=== PATIENT | male | born 1940 | race Caucasian/White ===

== ENCOUNTER 2019-02-10 10:09 | Inpatient (IN) ==
[2019-02-10] MEDS ORDERED: NS 1,000 ML IV ONE (10:49)
[2019-02-10 11:19] LABS: BASO# 0.03 X1000 (0.0-0.2); BASO% 0.2 % (0.0-0.8); EOS# 0.07 X1000 (0.0-0.7); EOS% 0.5 % (0.0-10.0); HEMATOCRIT 39.4 % (42.0-52.0); HEMOGLOBIN 13.7 g/dL (14.0-18.0); IMM GRAN# 0.06 X1000 (0.0-0.04); IMM GRAN% 0.4 % (0.0-0.5); LYMPH# 1.02 X1000 (1.2-3.4); LYMPH% 7.3 % (20.5-51.1); MCH 32.2 PG (27-31); MCHC 34.8 g/dL (33-37); MCV 92.5 FL (81-99); MONO# 0.87 X1000 (0.11-0.59); MONO% 6.2 % (1.7-9.3); MPV 9.4 FL (7.4-10.4); NEUT# 11.94 X1000 (1.4-6.5); NEUT% 85.4 % (42.2-75.2); PLT 268 X1000 (130-400); RBC 4.26 XMIL (4.7-6.1); RDW 12.9 % (11.5-14.5); WBC 13.99 X1000 (4.8-10.8)
--- NOTE | 2019-02-10 11:19 | Diag Imaging Result Doc PS360 ---
CHEST-2 VIEWS - 02/10/2019 INDICATION: short of breath COMPARISON: 05/15/2018 FINDINGS: There is some ill-defined left upper lobe infiltrate. Heart size and pulmonary vascularity is normal. No pneumothorax or pleural effusion. IMPRESSION: Left upper lobe infiltrate compatible with pneumonia. Recommend treatment and a short-term follow-up chest x-ray in about one-2 weeks. Electronically signed by Guillaume Ward 02/10/2019 11:17 AM
[2019-02-10] MEDS ORDERED: ROCEPHIN 2 GM in NS 50 ML IV ONE (11:30)
[2019-02-10] MEDS ORDERED: ZITHROMAX 500 MG/NS 500 MG/250 ML IVPB IV ONE (11:30)
[2019-02-10 11:35] LABS: AGAP 16; ALBUMIN 3.2 g/dL (3.5-5.0); ALKALINE PHOSPHATASE 75 U/L (32-122); BUN 19 mg/dL (8-22); CALCIUM 8.6 mg/dL (8.8-10.2); CHLORIDE 95 mmol/L (98-107); COSMO 270; ESTIMATED GFR > 60; GLUCOSE 117 mg/dL (70-104); GOT 24 U/L (10-34); GPT 15 U/L (10-44); POTASSIUM 3.5 mmol/L (3.5-5.1); SODIUM 133 mmol/L (136-145); TCO2 22 mmol/L (25-35); TOTAL BILIRUBIN 0.34 mg/dL (0.20-1.00); TOTAL PROTEIN 6.5 g/dL (6.3-8.3)
[2019-02-10] MEDS ORDERED: TYLENOL PO PRN (14:53)
[2019-02-10] MEDS ORDERED: ZOFRAN IV PRN (14:53)
[2019-02-10] MEDS ORDERED: ROBITUSSIN-DM PO PRN (14:56)
--- NOTE | 2019-02-10 15:35 | HISTORY AND PHYSICAL ---
CHIEF COMPLAINT: Fever, dehydration. HISTORY OF PRESENT ILLNESS: This is a very pleasant 78-year-old gentleman with a history of hypertension who presents to the emergency room complaining of just feeling bad for 10 days. Stated that he has had no appetite, only taking in liquids during this 10 days. He states that for the last 7 weeks he has had intermittent body aches, fever, nausea, diarrhea, prompting his ER visit. He denied any chest pain, palpitations, any syncope, any black or bloody vomitus or stools. PAST MEDICAL HISTORY: Hypertension, gastroesophageal reflux disease, villous adenoma, status post colon resection. PAST SURGICAL HISTORY: Colon resection in 2016, appendectomy, cholecystectomy and routine colonoscopy. SOCIAL HISTORY: He smokes a pipe every day. He is . He lives with his . He denies alcohol or illicit drug use. ALLERGIES: No known drug allergies. HOME MEDICATIONS: A list will be obtained by the nursing staff and once verified will be reviewed and restarted as appropriate. REVIEW OF SYSTEMS: As discussed with patient with pertinent positives stated in the HPI. He denied any chest pain, palpitations, syncope, dizziness, productive cough, recent weight loss or weight gain, any constipation, any black or bloody vomitus or stools, any hematuria, dysuria, frequency, urgency. PHYSICAL EXAMINATION: GENERAL: This is a 78-year-old gentleman who is lying flat in the stretcher in the emergency room in no distress. VITAL SIGNS: Blood pressure is 158/90, with a heart rate of 80, respirations 18, temperature is 99.3 oral, with room air sats 96-98%. EYES: Pupils equal, round, react to light. EOMs are intact. Sclerae are anicteric. HEENT: Head is normocephalic, atraumatic. Mucous membranes are dry and sticky. NECK: Supple, with trachea midline. CARDIOVASCULAR: Regular rate and rhythm. S1 and S2 are appreciated. EXTREMITIES: He has no lower extremity edema. Calves are nontender to palpation bilaterally, with peripheral pulses palpable x 4 extremities. PULMONARY: Breath sounds with some rhonchi that do not completely clear to cough on the left. Chest rises and falls symmetrically with respiration. Chest wall is nontender to palpation. He has no increased work of breathing noted. GASTROINTESTINAL: Soft, nontender, nondistended, with bowel sounds in all 4 quadrants. GENITOURINARY: He has no CVA nor suprapubic tenderness. NEUROLOGIC: He is alert oriented x 3. SKIN: Warm and dry. LABS: WBC is 13.9, with hemoglobin 13.7, hematocrit 39.4 and platelets of 268,000. Sodium 133, potassium 3.5, BUN 19, creatinine 1 with a glucose of 117. Blood cultures are pending. Influenza A and B are both negative. Chest x-ray revealed left upper lobe pneumonia. ASSESSMENT AND PLAN: 1. Left upper lobe pneumonia. Blood cultures were obtained in the emergency room. He was given Rocephin and Zithromax, which will be continued. Add incentive spirometer every 4 hours. Sputum culture. 2. Hyponatremia. We will give gentle saline and recheck in the morning. 3. Leukocytosis secondary to #1. We will trend his labs daily. 4. Cough. Robitussin DM. 5. Hypertension. Continue his Norvasc and trend his vital signs. 6. Gastroesophageal reflux disease. Prilosec daily. 7. BMP and CBC in the morning. 8. Telemetry. Further treatments pending hospital course. Dictated by BOBBY Joe for Morgan Diaz MD cc: BOBBY Joe MD I have seen and examined Mr Weston today. I have also reviewed his labs and imagine studies. Mr Weston CT chest reveals multifocal pneumonias no evidence of any malignancy. I agree with the above HPI and the plan reflects my opinion discussed with the PHYSICS FACULTY MEMBER. OTTONIEL
--- NOTE | 2019-02-10 16:55 | Diag Imaging Result Doc PS360 ---
EXAM: CT THORAX/ABD/PELVIS W/CON INDICATION: suspicious for GI malignancy TECHNIQUE: This exam was performed using automated exposure control, adjustment of mA or kV according to patient size, and/or use of iterative reconstruction technique. COMPARISON: None. FINDINGS: CHEST: There is patchy airspace consolidation in the left upper lobe, and milder patchy consolidation in the lower right upper lobe and right lower lobe indicating pneumonia. There is mild subsegmental atelectasis at both lung bases. There is no pleural fluid collection and no pneumothorax. There are a few calcified mediastinal and hilar lymph nodes indicating prior granulomatous disease. There is no significant mediastinal or hilar lymphadenopathy, otherwise. There is nothing to suggest bony metastatic disease to the thorax. ABDOMEN/PELVIS: There is a small simple cyst in the left hepatic lobe. There are a few other tiny right hepatic lobe hypodensities that are nonspecific but also probably represent cysts. They are too small to characterize. There is no definite enhancement. The gallbladder, spleen, pancreas, and adrenal glands are unremarkable. There is bilateral chronic appearing symmetric perinephric stranding. The kidneys are unremarkable, otherwise. The urinary bladder appears normal. There has been a prior hemicolectomy on the right. There is no focal bowel wall thickening and no evidence of bowel obstruction. The remainder of the GI tract is grossly unremarkable by CT. No free abdominal gas or free fluid is identified. No abdominal or pelvic lymphadenopathy is appreciated. There is nothing to suggest bony metastatic disease to the abdomen or pelvis. IMPRESSION: 1.Multilobar pneumonia, most significant in the left upper lobe. 2.Left hepatic lobe simple cyst and a few tiny hypodensities in the right hepatic lobe that also probably represent cysts but are too small to characterize. 3.Other incidental/nonacute findings detailed above. Electronically signed by Gil Escamilla 02/10/2019 4:52 PM
[2019-02-10] MEDS: NS 1,000 ML IV SCH (17:46)
[2019-02-10 18:22] LABS: URINE SOURCE CLEAN CATCH
[2019-02-10 18:37] LABS: BILIRUBIN URINE NEGATIVE (NEGATIVE); BLOOD URINE SMALL (NEGATIVE); COLOR YELLOW; GLUCOSE URINE NEGATIVE (NEGATIVE); KETONE URINE NEGATIVE (NEGATIVE); LEUKOCYTES URINE NEGATIVE (NEGATIVE); NITRITE URINE NEGATIVE (NEGATIVE); PROTEIN URINE 50 mg/dL (NEGATIVE); TURBIDITY URINE CLEAR (CLEAR); UR EPITHELIAL CELLS <10 /HPF (<10); URINE BACTERIA NEGATIVE /HPF; URINE RBC <10 /HPF (<10); URINE WBC <10 /HPF (<10); UROBILINOGEN URINE NORMAL (NORMAL)
[2019-02-10 18:46] LABS: SP GRAVITY URINE < 1.005
[2019-02-11] MEDS: NS 1,000 ML IV SCH ×3 (05:50→18:01)
[2019-02-11] MEDS: PRILOSEC PO SCH (06:20)
[2019-02-11 07:48] LABS: BASO# 0.01 X1000 (0.0-0.2); BASO% 0.1 % (0.0-0.8); EOS# 0.16 X1000 (0.0-0.7); EOS% 1.7 % (0.0-10.0); HEMATOCRIT 34.3 % (42.0-52.0); HEMOGLOBIN 12.1 g/dL (14.0-18.0); IMM GRAN# 0.06 X1000 (0.0-0.04); IMM GRAN% 0.6 % (0.0-0.5); LYMPH# 0.93 X1000 (1.2-3.4); LYMPH% 9.7 % (20.5-51.1); MCH 32.8 PG (27-31); MCHC 35.3 g/dL (33-37); MONO# 0.79 X1000 (0.11-0.59); MONO% 8.2 % (1.7-9.3); MPV 9.2 FL (7.4-10.4); NEUT# 7.66 X1000 (1.4-6.5); NEUT% 79.7 % (42.2-75.2); PLT 267 X1000 (130-400); RBC 3.69 XMIL (4.7-6.1); RDW 12.9 % (11.5-14.5); WBC 9.61 X1000 (4.8-10.8)
[2019-02-11 08:11] LABS: AGAP 13; BUN 18 mg/dL (8-22); CALCIUM 8.2 mg/dL (8.8-10.2); CHLORIDE 98 mmol/L (98-107); COSMO 271; CREATININE 0.8 mg/dL (0.7-1.2); ESTIMATED GFR > 60; GLUCOSE 107 mg/dL (70-104); POTASSIUM 2.8 mmol/L (3.5-5.1); SODIUM 134 mmol/L (136-145); TCO2 23 mmol/L (25-35)
[2019-02-11] MEDS ORDERED: MAGNESIUM SULFATE 2 GM/S.W.I. 2 GM/50 ML IVPB IV ONE (08:22)
[2019-02-11] MEDS ORDERED: ZITHROMAX PO SCH (09:00)
[2019-02-11 09:09] LABS: IRON SATURATION 16 %; TIBC 128 ug/dL; TOTAL IRON 20 ug/dL (53-167); UNBOUND IRON 108 ug/dL (112-346)
[2019-02-11 09:18] LABS: FERRITIN 15 ng/mL (30-400)
[2019-02-11] MEDS: NORVASC PO SCH (10:58)
[2019-02-11] MEDS: ROCEPHIN 1 GM in NS 50 ML IV SCH (10:58)
[2019-02-11] MEDS: POTASSIUM CHLORIDE 20 MEQ/SWI 20 MEQ/100 ML IVPB IV SCH ×2 (12:15→15:22)
[2019-02-11] MEDS: CYANOCOBALAMIN IM SCH (12:15)
[2019-02-11] MEDS: FOLIC ACID PO SCH (12:15)
--- NOTE | 2019-02-11 12:15 | PROGRESS NOTE ---
DATE: 02/11/2019 SUBJECTIVE: This morning Mr. Weston refers to be feeling a whole lot better. He said it is the first time he has eaten food in a couple weeks. OBJECTIVE: Vitals: Blood pressure is 139/77, pulse is 65, respirations 16 and temperature is 97.9 degrees. General: Mr. Weston is a 78-year-old gentleman. He was in bed. No distress HEENT: Mucosa is pink, slightly dry. Anicteric. Acyanotic. Neck: Supple. Chest: Air entry is bilaterally reduced. A few distant crackles in the posterior lung hurst, but no wheezing. Cardiovascular: Regular rate and rhythm. Abdomen: Soft. There is an old infraumbilical surgical scar, but no tenderness, no hepatosplenomegaly. Extremities: No pedal edema. TECHNICAL STAFF ENGINEER: Patient is awake, alert, and oriented. There is no focal neurological deficit. LABORATORY DATA: WBC is 9.61, hemoglobin is 12.1, platelet count of 267. Chemistry is also reviewed. Sodium is 134, potassium is 2.8. The patient's ferritin is 15. Vitamin B 12 is 150, folate is 9.4. DIAGNOSTIC STUDIES: 1. A CT scan of the chest, abdomen and pelvis showed yesterday multilobar pneumonia, most significantly in the left upper lobe. 2. A left hepatic lobe simple cyst and a few tiny hypodensities in the right hepatic lobe, also probably representing cysts, but are too small to characterize. There was also a prior right hemicolectomy, and the gastrointestinal tract was grossly unremarkable. ASSESSMENT: 1. Multilobar pneumonia. Patient is currently on intravenous antibiotics. White cell count has normalized. The patient is afebrile. We are going to continue with the current antibiotics. We are still pending blood culture and sputum culture to tailor antimicrobial therapy accordingly. 2. Clinical volume depletion. Patient is currently on intravenous fluids. 3. Severe iron deficiency anemia. Patient has been started on Venofer. fair. We will also do occult blood testing to rule out any chronic gastrointestinal blood loss. 4. Vitamin B 12 deficiency. We will start the patient on B 12 replacement. 5. Generalized weakness, presumably due to a combination of the ongoing infection and electro mineral deficiencies. We will address each 1 accordingly. We will also get physical therapy to start working with Mr. Weston. 6. Previous history of tubular adenoma with villous features, with the larger with focal high- grade dysplasia. This sample was in 2016. This was from right hemicolectomy. Since then, he also had a polyp removed in December 2018 which was a tubular adenoma. The patient will continue to follow up with Dr. Wu. 7. Hypokalemia. We will continue to replace. PLAN: So, in general, Mr. Weston refers to be doing a whole lot better today. Appetite has improved and he is eating more. We are going to continue with the current IV antibiotics, hydration, replace all his electro mineral abnormalities, and get physical therapy also to evaluate him today. cc: Morgan Diaz MD
[2019-02-11] MEDS: ZITHROMAX 500 MG/NS 500 MG/250 ML IVPB IV SCH (14:17)
[2019-02-11] MEDS ORDERED: CALMOSEPTINE OINTMENT TOP PRN (14:19)
[2019-02-11] MEDS: VENOFER 200 MG in NS 100 ML IV SCH (18:01)
[2019-02-12] MEDS: NS 1,000 ML IV SCH (04:59)
[2019-02-12] MEDS: PRILOSEC PO SCH (07:04)
[2019-02-12 07:37] LABS: BASO# 0.03 X1000 (0.0-0.2); BASO% 0.4 % (0.0-0.8); EOS# 0.21 X1000 (0.0-0.7); EOS% 2.7 % (0.0-10.0); HEMOGLOBIN 12.2 g/dL (14.0-18.0); IMM GRAN# 0.08 X1000 (0.0-0.04); LYMPH# 1.12 X1000 (1.2-3.4); LYMPH% 14.6 % (20.5-51.1); MCH 32.4 PG (27-31); MCHC 34.9 g/dL (33-37); MCV 92.8 FL (81-99); MONO# 0.55 X1000 (0.11-0.59); MONO% 7.2 % (1.7-9.3); MPV 9.5 FL (7.4-10.4); NEUT# 5.69 X1000 (1.4-6.5); NEUT% 74.1 % (42.2-75.2); PLT 278 X1000 (130-400); RBC 3.77 XMIL (4.7-6.1); RDW 12.9 % (11.5-14.5); WBC 7.68 X1000 (4.8-10.8)
[2019-02-12 08:00] LABS: AGAP 10; ALB/GLOB RATIO 0.7; ALBUMIN 2.5 g/dL (3.5-5.0); ALKALINE PHOSPHATASE 62 U/L (32-122); BUN 16 mg/dL (8-22); CALCIUM 8.4 mg/dL (8.8-10.2); CHLORIDE 102 mmol/L (98-107); COSMO 275; CREATININE 0.7 mg/dL (0.7-1.2); ESTIMATED GFR > 60; GLUCOSE 103 mg/dL (70-104); GOT 36 U/L (10-34); GPT 24 U/L (10-44); SODIUM 137 mmol/L (136-145); TCO2 25 mmol/L (25-35); TOTAL BILIRUBIN 0.24 mg/dL (0.20-1.00); TOTAL PROTEIN 5.9 g/dL (6.3-8.3)
[2019-02-12] MEDS: NORVASC PO SCH (08:13)
[2019-02-12] MEDS: FOLIC ACID PO SCH (08:13)
[2019-02-12] MEDS: ROCEPHIN 1 GM in NS 50 ML IV SCH (08:14)
[2019-02-12] MEDS: CYANOCOBALAMIN IM SCH (08:14)
[2019-02-12] MEDS ORDERED: KLOR-CON PO ONE (08:48)
[2019-02-12] MEDS: ZITHROMAX 500 MG/NS 500 MG/250 ML IVPB IV SCH (09:45)
[2019-02-12] MEDS: VENOFER 200 MG in NS 100 ML IV SCH (12:20)
[2019-02-12 14:20] VITALS: BP 138/64
--- NOTE | 2019-02-13 08:06 | DISCHARGE SUMMARY ---
ADMISSION DATE: 02/10/2019 DISCHARGE DATE: 02/12/2019 DISPOSITION: Home. Follow-up: Dr. Suggs. CONSULTATION DURING THIS ADMISSION: None. IMAGING STUDIES OF SIGNIFICANCE: 1. A chest x-ray did show left upper lobe infiltrate compatible with pneumonia. 2. A CT scan of the chest, abdomen and pelvis showed multilobar pneumonia, most significant in the left upper lobe. There was a left hepatic lobe cyst as well. ADMISSION DIAGNOSES: 1. Left upper lobe pneumonia. 2. Hyponatremia. 3. Leukocytosis. 4. Gastroesophageal reflux disease. DIAGNOSES AT THE TIME OF DISCHARGE: 1. Multilobar pneumonia. 2. Clinical volume depletion. 3. Severe iron deficiency anemia. 4. Vitamin B 12 deficiency. 5. Generalized weakness. 6. Previous history of tubular adenoma with villous features. The patient follows up with Dr. Wu. DISCHARGE MEDICATIONS: 1. Amlodipine 10 mg p.o. daily. 2. Lexapro 20 mg daily. 3. Losartan 100 mg daily. 4. Sertraline 50 mg daily. 5. Ferrous gluconate 324 b.i.d. 6. Folic acid 1 mg daily. 7. Cally-Colace 1 tablet b.i.d. 8. Omeprazole 40 mg daily. 9. Azithromycin 250 p.o. daily. 10. Augmentin 875 p.o. daily. 11. Cyanocobalamin 1000 mcg p.o. daily. PRESENTING COMPLAINT: Fever and dehydration. HISTORY OF PRESENTING COMPLAINT: Mr. Weston is a 78-year-old male, who presented to the emergency department because of fever, generalized weakness and loss of appetite for a couple days. Upon presentation, patient was evaluated. He was found to have pneumonia on the chest x- ray. He was subsequently admitted for further medical care. HOSPITAL COURSE: Mr. Weston was admitted to the medical floor. A CT scan was done to identify the source of the sepsis picture, and it appeared that he did have a multilobar pneumonia. He was initially started on broad-spectrum IV antibiotics and was adequately hydrated. During the course of the hospital stay, Mr. Weston continues to improve. He started to eat more. His appetite got more opened up. This morning, he said this is the best 3 days of his life that he has been able to eat as he wanted. He was also found to have severe iron deficiency with ferritin level of 15, so he was given 1 infusion of Venofer. He was also found to have multiple deficiencies including B 12 and folate, and these were all replaced accordingly. He will continue with oral replacement. Mr. Weston's occult blood testing was negative. Blood cultures also came back negative. This morning Mr. Weston refers to feel a lot better. He has had physical therapy evaluation today and he is doing well. He is, therefore, going to be discharged home in stable condition. He will continue with the antibiotics and follow up with his primary care doctor with a repeat chest x-ray at the end of the treatment. All the discharge instructions have been discussed with Mr. Weston, and he voiced understanding. TIME SPENT FOR DISCHARGE: 33 minutes. cc: MD Sindi Cordon MD Khurshid Yousuf, MD
--- NOTE | 2019-02-15 11:05 | PROVIDER DOCUMENTATION ---
This chart was entered by Lyly Machado Scribe, acting as scribe for Jason Bradshaw MD. HPI-General Adult - General Chief Complaint: Cold Symptoms Stated Complaint: ELEVATED TEMP/DEHYDRATION Time Seen by Provider: 02/10/19 10:22 Source: patient Allergies/Adverse Reactions: Patient Allergies Allergy/AdvReac Type Severity Reaction Status Date / Time No Known Allergies Allergy Verified 03/18/16 08:59 Home Medications: Home Medication List Medication Instructions Recorded Confirmed Last Taken Type Amlodipine Besylate [Norvasc] 10 mg PO DAILY 02/10/19 02/10/19 Unknown History Escitalopram [Lexapro] 20 mg PO DAILY 02/10/19 02/10/19 Unknown History Gemfibrozil 600 mg PO BID 02/10/19 02/10/19 Unknown History Losartan Potassium [Cozaar] 100 mg PO DAILY 02/10/19 02/10/19 Unknown History Sertraline [Zoloft] 50 mg PO DAILY 02/10/19 02/10/19 Unknown History Amlodipine [Norvasc] 10 mg PO DAILY #0 tab 02/12/19 Unknown Rx Amoxicillin/Pot Clavulanate 875 mg PO Q12HR #10 tab 02/12/19 Unknown Rx [Augmentin] Azithromycin [Zithromax] 250 mg PO DAILY #5 tab 02/12/19 Unknown Rx Cyanocobalamin (Vitamin B-12) 1,000 mcg PO DAILY #120 tab 02/12/19 Unknown Rx [Cyanocobalamin] Ferrous Gluconate 324 mg PO BID #120 tab 02/12/19 Unknown Rx Folic Acid 1 mg PO DAILY #120 tab 02/12/19 Unknown Rx Omeprazole [Prilosec] 40 mg PO DAILY@0700 #30 cap 02/12/19 Unknown Rx Sennosides/Docusate Sodium 1 ea PO BID #120 tab 02/12/19 Unknown Rx [Pericolace] - History of Present Illness -Gen Adult Nature of Presenting Problems: Patient is a 78 year old male who presents to the ED via EMS with body aches, fever, nausea, diarrhea, loss of appetite and cough that has been present for 7 weeks. States he is able to hold down liquids but has not had solid intake in 10 days. Denies vomiting. Location of Pain/Injury: reports: generalized Pain Radiation: reports: no radiation Quality of Pain: reports: aching Severity: reports: mild Onset/Duration: reports: other (7 weeks) Timing: reports: still present Context/Activities at Onset: reports: light activity Modifying Factors: improves with: nothing Associated Symptoms: reports: cough, diarrhea, fever/chills (fever), loss of appetite, nausea Similar Symptoms Previously?: Yes Recently seen or treated by another doctor?: Yes Review of Systems - Adult - REVIEW OF SYSTEMS - ADULT Constitutional: reports: see HPI, fever. denies: chills, fatique Eyes: reports: no symptoms reported Ears, Nose, Mouth & Throat: reports: no symptoms reported Cardiovascular: reports: no symptoms reported Respiratory: reports: see HPI, cough. denies: shortness of breath, wheezing Gastrointestinal: reports: see HPI, diarrhea, nausea, poor appetite. denies: abdominal pain, vomiting Genitourinary: reports: no symptoms reported Musculoskeletal: reports: see HPI, muscle aches. denies: back pain, neck pain Integumentary: reports: no symptoms reported Neurological: reports: no symptoms reported Psychiatric: reports: no symptoms reported Endocrine: reports: no symptoms reported Hematologic/Lymphatic: reports: no symptoms reported Allergic/Immunologic: reports: no symptoms reported All Other Systems: Reviewed and Negative Past History - Adult - PAST MEDICAL HISTORY-ADULT Review of Records: reports: Nursing Assessment Review, Medications Reviewed, Social history reviewed & non-contributory. Major Childhood Illnesses: reports: denies history Cardiovascular: reports: HTN Respiratory: reports: denies history Gastrointestinal: reports: GERD Obstetrical/Gynecological: reports: denies history Genitourinary: reports: denies history Musculoskeletal: reports: denies history Neurological: reports: denies history Psychiatric: reports: denies history Endocrine/Immune: reports: denies history Other Conditions: reports: denies history - PRIOR SURGERIES/PROCEDURES Surgical/Procedure History: reports: appendectomy, cholecystectomy, back/neck - IMMUNIZATION STATUS Childhood Immunizations: See Nurse Assessment Flu Vaccine: See Nurse Assessment - FAMILY HISTORY Family History: reviewed, not pertinent - SOCIAL HISTORY Smoking: denies Substance Use: denies Physical Exam-General - PHYSICAL EXAM-ADULT Initial Vital Signs Reviewed: Yes - CONSTITUTIONAL General Appearance: alert, no apparent distress. negative: lethargic, slow to respond - HEAD, EARS, NOSE, MOUTH & THROAT HENMT: other (dry mucous membranes). negative: angioedema, hearing deficit - RESPIRATORY Respiratory: chest non-tender, rhonchi (left side). negative: crackles, wheezing - CARDIOVASCULAR Cardiovascular: normal peripheral pulses, regular rate, rhythm. negative: tachycardia, systolic murmur - GASTROINTESTINAL (ABDOMEN) Abdominal Exam: normal bowel sounds, non tender, soft. negative: guarding, rebound - MUSCULOSKELETAL Extremity: non-tender, normal inspection. negative: deformity, erythema - SKIN Integumentary: normal color, normal turgor, warm/dry. negative: cyanosis, ecchymosis, erythema, jaundice - NEUROLOGIC Neurologic: grossly normal. negative: aphasia, facial droop - PSYCHIATRIC Psych/Mental Status: normal mood/affect, oriented x 3. negative: paranoid Progress - PLAN OF CARE/RESULTS Progress/Plan/Lab Results: Vital Signs - 8 hr 02/10/19 10:17 Temperature 99.3 F Pulse Rate 80 Respiratory Rate 18 Blood Pressure 158/99 O2 Sat by Pulse Oximetry 96 Orders Category Date Time Status CHEST-2 VIEWS [RAD] Stat Exams 02/10/19 10:48 Ordered CBC WITH ELECTRONIC DIFF [HEME] Stat Lab 02/10/19 10:47 Uncollected COMPREHENSIVE METABOLIC PANEL [CHEM] Stat Lab 02/10/19 10:49 Uncollected INFLUENZA SCREEN A/B Stat Lab 02/10/19 10:48 Uncollected TROPONIN T Stat Lab 02/10/19 10:49 Uncollected URINALYSIS W/POSS RFLX CULT [URINALYSIS] Stat Lab 02/10/19 10:48 Uncollected 0.9% Sodium Chloride Inj [Ns] 1,000 ml Med 02/10/19 10:49 Active IV 999 mls/hr Result Diagrams: 02/12/19 07:02 02/12/19 07:02 - REASSESSMENT Reassessment #1 Time Reassessed: 12:46 Status: improving (patient states he is feeling better.) - XRAY 1 XRAY Study: Chest Impression: See EMR Report ( CHEST-2 VIEWS - 02/10/2019 INDICATION: short of breath COMPARISON: 05/15/2018 FINDINGS: There is some ill-defined left upper lobe infiltrate. Heart size and pulmonary vascularity is normal. No pneumothorax or pleural effusion. IMPRESSION: Left upper lobe infiltrate compatible with pneumonia. Recommend treatment and a short-term follow-up chest x-ray in about one-2 weeks. Electronically signed by Guillaume Ward 02/10/2019 11:17 AM 02/10/19 1117 Interpreting Physician: Guillaume Ward MD Dictated Date/Time: 02/10/19 1116 cc: Jason Bradshaw MD; Sindi Suggs MD) - CONSULTS/PCP/HOSPITALIST Notification #1 *Consult/PCP/Hospitalist*: BOBBY Garcia for Hospitalist Time Discussed: 14:32 Reason/Comments: Dr. Bradshaw consulted with Radha about patient. Consult Disposition: Will see in ED, Admit Departure - Departure Date of Disposition Decision: 02/10/19 Time of Disposition Decision: 14:32 DIAGNOSIS: Pneumonia Disposition: ADMITTED INPATIENT 09 Certified Medical Emergency: Emergent Condition: Stable - Critical Care Note This patient required my direct & personal management of CC.: No Attestation - Physician/ LIS Attestation The physician spent face to face time with patient:: Yes Advanced Practice Provider documentation review:: Supervising physician onsite and consulted in the evaluation and care of this patient. The physician did have a face to face encounter with the patient. This chart was documented by the indicated scribe, (Lyly Machado Scribe) and ac curately reflects the services I performed and decisions made by me, Jason Bradshaw MD, as attested by the provider's signature.
== END 2019-02-12 16:19 | disposition home or self-care (01) | DRG 194 ==
LOC: SUPCPDRO → ED 10:09 → 3N 16:05
PROVIDERS: ATTEND Internal Medicine
CPT/HCPCS: 71020; 71046; 71260; 74177; 80048; 80053; 81001; 82270; 82378; 82607; 82728; 82746; 82948; 83540; 83550; 84484; 85025; 87040; 87275; 87276; 87804; 94761; 94799; 96365; 97161; 97530; 99285; A9270; J0456; J0696; J1756; J3420; J3475; J3480; J7030; Q9967; XXXXX